=== PATIENT | male | born 1985 | race Caucasian/White ===

== ENCOUNTER 2025-02-13 08:16 | Emergency (ER) | payer OTHER, SELFPAY ==
[2025-02-13 08:49] LABS: Absolute Lymphocytes (CBC) 1.4 K/uL (0.7-4.9); Absolute Monocytes 0.6 K/uL (0.1-1.3); Absolute Neutrophil 5.3 K/uL (1.8-8.0); Basophils % 0.4 % (0-1.3); Eosinophils % 0.2 % (0-4.4); Hemoglobin 16.3 g/dL (13.6-17.9); Lymphocytes % 18.7 % (15.3-44.8); MCH 30.9 pg (27.0-35.0); MCHC 34.6 g/dL (32.0-36.0); MCV 89.3 fL (80-100); MPV 7.5 fL (7.6-11.3); Neutrophils % 72.7 % (41.7-73.7); Nucleated Red Blood Cells % 0.1 % (0-0); Platelets 182 thou/uL (152-406); RBC Red Blood Cell Count 5.26 M/uL (4.33-5.43); Red Cell Distribution Width 15.7 % (12.1-15.2)
[2025-02-13 08:56] LABS: PT Prothrombin Time 10.6 SECONDS (10-13.0); PTT, Activated Partial Thromb 28.8 SECONDS (27.2-37.4); Protime INR 0.93
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
[2025-02-13 09:26] LABS: ALT/SGPT 56 U/L (16-61); AST/SGOT 69 U/L (15-37); Albumin 3.9 g/dL (3.4-5.0); Alkaline Phosphatase 94 U/L (45-117); Anion Gap 12.6 mEq/L (5.0-15.0); BUN Blood Urea Nitrogen 14 mg/dL (7-18); Bicarbonate 26 mEq/L (21-32); Bilirubin Direct 0.2 mg/dL (0-0.2); Bilirubin Indirect, Calculated 0.2 mg/dL (0.2-0.8); Bilirubin Total 0.4 mg/dL (0.2-1.0); Globulin 3.9 g/dL (2.3-3.5); Glomerular Filtration Rate 59 ml/min (=/>90); Glucose Level 107 mg/dL (74-106); Potassium 3.6 mEq/L (3.5-5.1); Protein, Total 7.8 g/dL (6.4-8.2); Sodium Level 139 mEq/L (136-145)
[2025-02-13] MEDS ORDERED: NA CHLORIDE 0.9% 1,000 ML ONE ×2 (09:26→11:31)
[2025-02-13 10:33] LABS: Barbiturates NEGATIVE (NEGATIVE); Benzodiazepines NEGATIVE (NEGATIVE); Cocaine NEGATIVE (NEGATIVE); METHAMPHETAM NEGATIVE (NEGATIVE); Methadone NEGATIVE (NEGATIVE); Opiates NEGATIVE (NEGATIVE); Phencyclidine NEGATIVE (NEGATIVE); THC Cannibis NEGATIVE (NEGATIVE)
[2025-02-13] MEDS ORDERED: MULTIVITAMINS 10 ML VIAL (INJ) IV ONE (11:30)
[2025-02-13] MEDS ORDERED: THIAMINE 200 MG/2 ML INJ ONE (11:30)
[2025-02-13] MEDS ORDERED: FOLIC ACID 5 MG/ML VIAL ONE (11:31)
--- NOTE | 2025-02-13 12:02 | EKG ---
Test Date: 2025-02-13 Test Time: 08:35:49 Production Planner Scheduler: FREDA MEASUREMENT RESULTS: Intervals: Rate: 96 RI: 130 QRSD: 98 QT: 370 QTc: 467 [place]: P: 56 RI: 130 QRS: 108 T: -2 INTERPRETIVE STATEMENTS: Normal sinus rhythm Rightward axis Abnormal QRS-T angle, consider primary T wave abnormality Abnormal ECG No previous ECG available for comparison Electronically Signed On 02-13-25 12:01:53 CDT by Malcom Gonzalez
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
[2025-02-14 02:06] VITALS: BP 156/77; TEMP 98.4; O2SAT 97
== END 2025-02-13 19:28 ==
LOC: ER 08:16
DX: R45.851 Suicidal ideations (principal); F32.A Depression, unspecified
CPT/HCPCS: 96365; 96361; 93005; 85025; 80048; 36415; 85610; 80076; 85730; 80307; 71046; 99285; 96366; 80143; 80179; 82077; J3411; J7030 ×2